=== PATIENT | male | born 1980 | race Caucasian/White ===

== ENCOUNTER 2017-10-14 16:08 | Emergency (ER) | payer OTHER ==
[~2017-10-14] VITALS: Ht 188 cm; Wt 114.0 kg
[~2017-10-14 16:08] MED LIST: NO HOME MEDS; OXYC-150 PO
[2017-10-14 16:11] VITALS: BP 147/86
[2017-10-14] MEDS ORDERED: cyclobenzaprine 10mg tablet PO ONE ×2 (16:55)
[2017-10-14] MEDS ORDERED: ketorolac trometh inj. 60 MG/2 ML VIAL IM ONE (16:55)
[2017-10-14] MEDS ORDERED: HYDROmorphone 2mg tablet PO ONE (16:55)
[2017-10-14] MEDS ORDERED: HYDR-565 PO (17:00)
[2017-10-14] MEDS ORDERED: NAPR-56 PO (17:00)
== END 2017-10-14 17:19 | disposition home or self-care (01) ==
LOC: ER 16:09
DX: M54.5 Low back pain (principal); G89.29 Other chronic pain; Z88.8 Allergy status to other drugs, medicaments and biological substances; Z79.899 Other long term (current) drug therapy
CPT/HCPCS: 96372; 99283; J1885

== ENCOUNTER 2017-11-06 14:20 | Emergency (ER) | payer OTHER ==
[~2017-11-06] VITALS: Ht 188 cm; Wt 141.8 kg
[~2017-11-06 14:20] MED LIST changes: +NAPR-56 PO
[2017-11-06] MEDS ORDERED: diazepam 5mg tablet PO ONE (15:10)
[2017-11-06] MEDS ORDERED: HYDROcodone/acetaminophen 5mg/325mg tablet PO ONE (15:10)
[2017-11-06] MEDS ORDERED: ondansetron 4mg rapidly disintigrating tab PO ONE (15:10)
[2017-11-06] MEDS ORDERED: dexamethasone 4mg tablet PO ONE (15:10)
[2017-11-06] MEDS ORDERED: HYDROcodone/acetaminophen 10/325mg tab PO ONE (15:55)
[2017-11-06] MEDS ORDERED: METH4TAB3 PO ×2 (15:59→16:36)
[2017-11-06] MEDS ORDERED: HYDR-3965 PO (15:59)
[2017-11-06] MEDS ORDERED: METH500T PO ×2 (15:59→16:36)
[2017-11-06] MEDS ORDERED: ONDA4TAB9 SL (15:59)
[2017-11-06] MEDS ORDERED: OXYC-150 PO (16:36)
[2017-11-06] MEDS ORDERED: ONDA4TAB9 PO (16:36)
[2017-11-06 16:50] VITALS: BP 124/62
== END 2017-11-06 16:52 | disposition home or self-care (01) ==
LOC: ER 14:21
DX: G89.29 Other chronic pain (principal); M54.41 Lumbago with sciatica, right side; M62.830 Muscle spasm of back; Z98.890 Other specified postprocedural states; Z88.6 Allergy status to analgesic agent; Z88.8 Allergy status to other drugs, medicaments and biological substances
CPT/HCPCS: 99284; J8540

== ENCOUNTER 2017-11-23 18:25 | Emergency (ER) | payer OTHER ==
[~2017-11-23] VITALS: Ht 188 cm; Wt 144.0 kg
[~2017-11-23 18:25] MED LIST changes: +METH4TAB3 PO; +METH500T PO; -NAPR-56 PO; +ONDA4TAB9 PO
[2017-11-23] MEDS ORDERED: BUPIVAcaine/PF 2.5 mg/ml (0.25%) 30ml vial IJ ONE (20:00)
[2017-11-23] MEDS ORDERED: morphine 4 MG/ML inj SYRINge IM ONE (20:00)
[2017-11-23] MEDS ORDERED: ondansetron 4mg rapidly disintigrating tab PO ONE (20:00)
[2017-11-23] MEDS ORDERED: BUPIVAcaine 0.5% inj/PF 30 ml vial IJ ONE (20:20)
[2017-11-23] MEDS ORDERED: dextrose 50%-water 50ml dispensing syringe IV ONE (21:10)
[2017-11-23] MEDS ORDERED: OXYC-150 PO (21:13)
[2017-11-23 21:24] VITALS: BP 133/85
[2017-11-23] MEDS ORDERED: METH500T PO (22:17)
[2017-11-23] MEDS ORDERED: HYDR-3965 PO (22:17)
== END 2017-11-23 21:29 | disposition home or self-care (01) ==
LOC: ER 18:26
DX: T81.89XA Other complications of procedures, not elsewhere classified, initial encounter (principal); M54.5 Low back pain; G89.29 Other chronic pain; Z98.890 Other specified postprocedural states; Z79.899 Other long term (current) drug therapy; Z88.6 Allergy status to analgesic agent; Z88.0 Allergy status to penicillin; Z88.2 Allergy status to sulfonamides; Z88.8 Allergy status to other drugs, medicaments and biological substances; Y83.8 Other surgical procedures as the cause of abnormal reaction of the patient, or of later complication, without mention of misadventure at the time of the procedure; Y92.89 Other specified places as the place of occurrence of the external cause
CPT/HCPCS: 20552; 96372; 99284; J2270; J3490

== ENCOUNTER 2018-02-10 21:40 | Emergency (ER) | payer OTHER ==
[~2018-02-10] VITALS: Ht 188 cm; Wt 142.7 kg
[~2018-02-10 21:40] MED LIST changes: +HYDR-569 PO; +IBUP-1984 PO; -ONDA4TAB9 PO
[2018-02-10 21:43] VITALS: BP 131/92
[2018-02-10] MEDS ORDERED: METH4TAB3 PO (23:59)
[2018-02-10] MEDS ORDERED: METH500T PO (23:59)
[2018-02-10] MEDS ORDERED: VAL5T PO (23:59)
[2018-02-11] MEDS ORDERED: morphine 4 MG/ML inj SYRINge IM ONE (00:05)
[2018-02-11] MEDS ORDERED: diazepam 5mg tablet PO ONE ×2 (00:05)
[2018-02-11] MEDS ORDERED: dexamethasone 4mg tablet PO ONE ×2 (00:05)
== END 2018-02-11 00:18 | disposition home or self-care (01) ==
LOC: ER 21:41
DX: S29.012A Strain of muscle and tendon of back wall of thorax, initial encounter (principal); S39.012A Strain of muscle, fascia and tendon of lower back, initial encounter; G89.29 Other chronic pain; Z88.6 Allergy status to analgesic agent; Z88.8 Allergy status to other drugs, medicaments and biological substances; Z79.899 Other long term (current) drug therapy; W17.89XA Other fall from one level to another, initial encounter; Y93.01 Activity, walking, marching and hiking; Y92.89 Other specified places as the place of occurrence of the external cause; Y99.8 Other external cause status
CPT/HCPCS: 93005; 96372; 99284; J2270; J8540

== ENCOUNTER 2018-03-10 00:30 | Emergency (ER) | payer OTHER ==
[~2018-03-10] VITALS: Ht 188 cm; Wt 130.0 kg
[~2018-03-10 00:30] MED LIST changes: +HYDR-4383 PO; -HYDR-569 PO; -IBUP-1984 PO; +VAL5T PO
[2018-03-10 00:34] VITALS: BP 135/102
[2018-03-10] MEDS ORDERED: morphine 10mg/ml inj. IM ONE (01:05)
[2018-03-10] MEDS ORDERED: diazepam 5mg tablet PO ONE (01:05)
[2018-03-10] MEDS ORDERED: ondansetron 4mg rapidly disintigrating tab PO ONE (01:05)
[2018-03-10] MEDS ORDERED: HYDROcodone/acetaminophen 5mg/325mg tablet PO ONE (01:05)
[2018-03-10] MEDS ORDERED: dexamethasone 4mg tablet PO ONE (01:05)
[2018-03-10] MEDS ORDERED: METH4TAB3 PO ×2 (01:27→02:19)
[2018-03-10] MEDS ORDERED: VAL5T PO ×2 (01:27→02:19)
[2018-03-10] MEDS ORDERED: HYDR-4353 PO (01:27)
[2018-03-10] MEDS ORDERED: ONDA4TAB9 SL ×2 (01:27→02:19)
[2018-03-10] MEDS ORDERED: METH500T PO ×2 (01:27→02:19)
[2018-03-10] MEDS ORDERED: OXYC-150 PO (02:19)
== END 2018-03-10 02:29 | disposition home or self-care (01) ==
LOC: ER 00:30
DX: S39.012A Strain of muscle, fascia and tendon of lower back, initial encounter (principal); M54.42 Lumbago with sciatica, left side; G89.29 Other chronic pain; Z88.6 Allergy status to analgesic agent; Z88.8 Allergy status to other drugs, medicaments and biological substances; Z98.890 Other specified postprocedural states; X58.XXXA Exposure to other specified factors, initial encounter; Y93.01 Activity, walking, marching and hiking; Y92.89 Other specified places as the place of occurrence of the external cause; Y99.8 Other external cause status
CPT/HCPCS: 96372; 99284; J2270; J8540

== ENCOUNTER 2018-04-06 01:46 | Emergency (ER) | payer OTHER ==
[~2018-04-06] VITALS: Ht 188 cm; Wt 150.0 kg
[~2018-04-06 01:46] MED LIST changes: +DIAZ10TA PO; +HYDR-4353 PO; +KETO10TA2 PO; +ONDA4TAB9 SL
[2018-04-06 02:58] VITALS: BP 157/96
[2018-04-06] MEDS ORDERED: dexamethasone sod phosphate 10mg/ml inj IM STA (03:04)
[2018-04-06] MEDS ORDERED: ondansetron/PF 4mg/2ml inj IV ONE (03:05)
[2018-04-06] MEDS ORDERED: ketorolac trometh inj. 60 MG/2 ML VIAL IM ONE (03:05)
[2018-04-06] MEDS ORDERED: morphine 4 MG/ML inj SYRINge IM ONE (03:05)
[2018-04-06] MEDS ORDERED: ondansetron 4mg rapidly disintigrating tab PO ONE (03:10)
[2018-04-06] MEDS ORDERED: PRED20TA PO (04:02)
[2018-04-06] MEDS ORDERED: HYDR-4353 PO (04:02)
== END 2018-04-06 04:13 | disposition home or self-care (01) ==
LOC: ER 01:47
DX: M54.42 Lumbago with sciatica, left side (principal); G89.29 Other chronic pain; Z98.890 Other specified postprocedural states; Z88.6 Allergy status to analgesic agent; Z88.8 Allergy status to other drugs, medicaments and biological substances; Z79.899 Other long term (current) drug therapy
CPT/HCPCS: 96372; 99284; J1100; J1885; J2270

== ENCOUNTER 2018-06-04 21:34 | Emergency (ER) | payer OTHER ==
[~2018-06-04] VITALS: Ht 188 cm; Wt 141.0 kg
[~2018-06-04 21:34] MED LIST changes: -HYDR-4353 PO; -ONDA4TAB9 SL; -VAL5T PO
[2018-06-04 22:04] VITALS: BP 135/95
--- NOTE | 2018-06-04 22:28 | NUR ---
After interviewing patient, his chief complaint has evolved. He initially complained of a concussion induced by a slip on ice. Now he states that he did not hit his head nor lose conciousness and that his primary reason for being seen is r/t back and knee pain. When I offered to order an x-ray of the knee per protocol he declines stating, "I know my body and it isn't broken. Its just going to be sprained." Patient also spent a considerable portion of his time talking about his prescribed percocet without any promting. It also appears based on pharmacy fills that he should be out or nearly out if he is taking them as prescribed. Patient also has frequent ER visits with multiple prescriptions for norco and valium from different providers over the last few months.
[2018-06-04] MEDS ORDERED: IBUP-1984 PO ×2 (23:00→23:01)
[2018-06-04] MEDS: orphenadrine citrate 60mg/2ml inj. IM ONE (23:11)
[2018-06-04] MEDS: ketorolac tromethamine 15mg/ml inj. IM ONE (23:11)
== END 2018-06-04 23:30 | disposition home or self-care (01) ==
LOC: ER 21:35
DX: G89.29 Other chronic pain (principal); M54.5 Low back pain; M54.6 Pain in thoracic spine; Z88.5 Allergy status to narcotic agent; Z88.8 Allergy status to other drugs, medicaments and biological substances; Z79.899 Other long term (current) drug therapy
CPT/HCPCS: 96372; 99283; J1885; J2360

== ENCOUNTER 2018-07-31 17:04 | Emergency (ER) | payer OTHER ==
[~2018-07-31] VITALS: Ht 188 cm; Wt 137.3 kg
[2018-07-31 17:24] VITALS: BP 123/84
[2018-07-31] MEDS ORDERED: LIDOcaine 5% patch TP ONE (19:15)
[2018-07-31] MEDS ORDERED: orphenadrine citrate 60mg/2ml inj. IM ONE (19:15)
[2018-07-31] MEDS ORDERED: ketorolac trometh inj. 60 MG/2 ML VIAL IM ONE (19:15)
== END 2018-07-31 19:52 | disposition home or self-care (01) ==
LOC: ER 17:05
DX: G89.18 Other acute postprocedural pain (principal); M54.5 Low back pain; G89.29 Other chronic pain; Z88.6 Allergy status to analgesic agent; Z88.8 Allergy status to other drugs, medicaments and biological substances; Z88.2 Allergy status to sulfonamides; Z88.0 Allergy status to penicillin; Z98.890 Other specified postprocedural states
CPT/HCPCS: 96372; 99284; J1885; J2360